=== PATIENT | female | born 1985 | race Caucasian/White ===

== ENCOUNTER 2018-02-16 11:03 | Emergency (ER) | payer MEDICAID ==
[2018-02-16] MEDS: SOD CHLORIDE 0.9% 1,000 ML IV (12:34)
[2018-02-16] MEDS: DEXAMETHASONE 4 MG/ML 1 ML INJ IV (12:37)
[2018-02-16] MEDS: morphine 2 MG INJ IV (12:38)
[2018-02-16] MEDS: ONDANSETRON (ODT) 4 MG TAB ODT (12:38)
[2018-02-16] MEDS: CEFTRIAXONE 2 GM/50 ML (PMX) 50 ML IVPB (12:50)
== END 2018-02-16 13:40 | disposition home or self-care (01) ==
LOC: FTE 11:03
DX: J03.90 Acute tonsillitis, unspecified (principal)
CPT/HCPCS: 81025; 96365; 96375; 99284-25

== ENCOUNTER 2018-05-07 15:14 | Emergency (ER) | payer MEDICAID ==
[2018-05-07] MEDS: KETOROLAC 30 MG INJ IM (16:20)
== END 2018-05-07 17:50 | disposition home or self-care (01) ==
LOC: FTE 15:14
DX: R51 Headache (principal)
CPT/HCPCS: 81025; 96372; 99284-25